=== PATIENT | female | born 1970 | race African-American/Black ===

== ENCOUNTER 2020-05-01 04:16 | Emergency (ER) | payer SELFPAY ==
--- NOTE | 2020-05-01 04:28 | PDOC ---
Attending Attestation - Resident Resident Name: Cesar Preston - ED Attending Attestation I have performed the following: I have examined & evaluated the patient, The case was reviewed & discussed with the resident, I agree w/resident's findings & plan (fat) - HPI HPI: 05/01/20 05:57 Pt comes with left foot plantar fasciitis. SHe also notes a small 1cm bump under the skin on the lateral aspect of her left lower leg. - Physicial Exam PE: 05/01/20 05:58 Agree with resident exam 05/01/20 19:49 Nomal exam. Pt has low arches and tightness and tenderness of the fascia bilaterally Normal skin Normal extremities no pitting edema; good pulses in lower extremities - Medical Decision Making 05/01/20 05:58 Pt will be given analgesics for her pain. She will be advised to wear supportive shoes with arch support; to do exercises for planatar fasciitis Discharge - Discharge Information Problems reviewed: Yes Clinical Impression/Diagnosis: Plantar fasciitis Disposition: HOME - Additional Discharge Information Prescriptions: Lidocaine 5% Patch [Lidoderm Patch -] 1 patch TP DAILY #30 patch - Follow up/Referral - Patient Discharge Instructions Patient Printed Discharge Instructions: DI for Plantar Fasciitis Additional Instructions: Take OTC tylenol or ibuprofen for pain management. Practice the exercise that we discussed to relief the pressure from the plantar fascia. Follow up with PCP for further monitoring. If condition worsens or new symptoms (shortness of breath, chest pain, leg pain) arise, go to the ED. - Post Discharge Activity
[2020-05-01 05:12] VITALS: BP 133/86; PULSE 82; TEMP 98.7; BMI 28.2
--- NOTE | 2020-05-01 05:26 | PDOC ---
History of Present Illness - General Chief Complaint: Pain, Acute Stated Complaint: L LEG PAIN Time Seen by Provider: 05/01/20 04:27 - History of Present Illness Initial Comments: 49yo female with no significant PMH presents with left lower extremity pain. She reports pain on the bottom of her left foot that she associates with beginning a walking program and uses flip flops. She also reports a slight bump on the lateral aspect of her left leg that feels like a "pressure". She denies CP, SOB, leg pain, swelling. Past History - Medical History Home Medications: Ambulatory Orders Lidocaine 5% Patch [Lidoderm Patch -] 1 patch TP DAILY #30 patch 05/01/20 - Psycho-Social/Smoking History Smoking History: Current every day smoker Have you smoked in the past 12 months: Yes Number of Cigarettes Smoked Daily: 10 Information on smoking cessation initiated: Yes - Substance Abuse Hx (Audit-C & DAST Scrn) How often the patient has a drink containing alcohol: 2-4 times / month Number of drinks the patient has on a typical day: 3 or 4 How often the patient has six or more drinks on one occasion: Less than monthly Score: In Men: 4 or > Positive; In Women: 3 or > Positive: 4 Screen Result (Pos requires Nsg. Audit-10AR): Positive In the last yr the pt used illegal drug/Rx for NonMed reason: No Score: Yes response is considered Positive: 0 Screen Result (Positive result requires Nsg. DAST-10): Negative Review of Systems - Review of Systems Able to Perform ROS?: Yes Constitutional: No: Chills, Fever HEENTM: No: Eye Pain, Blurred Vision, Double Vision Respiratory: No: Cough, Shortness of Breath, Productive cough Cardiac (ROS): No: Chest Pain, Edema, Palpitations, Chest Tightness ABD/GI: No: Constipated, Diarrhea, Nausea, Vomiting Musculoskeletal: Yes: Muscle Pain. No: Back Pain, Joint Pain, Joint Swelling, Muscle Weakness Integumentary: Yes: Other (Swelling in left lateral leg). No: Bruising Neurological: No: Headache, Numbness, Tingling, Weakness, Ataxia Psychiatric: No: Anxiety, Depression, Mood Swings *Physical Exam - Vital Signs Last Vital Signs Temp Pulse Resp BP Pulse Ox 98.7 F 82 18 133/86 98 05/01/20 05:00 05/01/20 05:00 05/01/20 05:00 05/01/20 05:00 05/01/20 05:00 - Physical Exam General Appearance: Yes: Appropriately Dressed. No: Apparent Distress, Disheveled Respiratory/Chest: positive: Lungs Clear, Normal Breath Sounds. negative: Respiratory Distress Cardiovascular: positive: Regular Rhythm, Regular Rate, S1, S2 Gastrointestinal/Abdominal: positive: Flat, Soft. negative: Tender Extremity: positive: Swelling (left lower extremity swelling that is barely visible but slightly palpable ). negative: Coldness, Cyanosis, Delayed Capillary Refill, Pedal Edema, Calf Tenderness, Erythema Neurologic: positive: Fully Oriented, Alert, Normal Mood/Affect, Normal Response, Motor Strength 5/5 Medical Decision Making - Medical Decision Making 49yo female presents with plantar pain and a slight swelling on the lateral aspect of her left leg. The plantar pain is most likely plantar fascitis with h er history of wearing uncomfortable shoes and beginning a walking exercise program. Her left leg swelling is of unknown etiology. The swelling is localized and non painful. She denies trauma or bites. Unlikely to be PE or DVT due to the localized nature and absence of surrounding edema. Pt is given a lidocaine patch and tylenol for pain control and told to followup with primary care. Discharge - Discharge Information Problems reviewed: Yes Clinical Impression/Diagnosis: Plantar fasciitis Condition: Stable Disposition: HOME - Admission No - Follow up/Referral - Patient Discharge Instructions Patient Printed Discharge Instructions: DI for Plantar Fasciitis Additional Instructions: Take OTC tylenol or ibuprofen for pain management. Practice the exercise that we discussed to relief the pressure from the plantar fascia. Follow up with PCP for further monitoring. If condition worsens or new symptoms (shortness of breath, chest pain, leg pain) arise, go to the ED. - Post Discharge Activity
[2020-05-01] MEDS ORDERED: LIDOCAINE 5% TOPICAL PATCH TP ONE (05:43)
[2020-05-01] MEDS ORDERED: LIDOCAINE PATCH REMOVAL MC ONE (18:00)
== END 2020-05-01 06:14 | disposition home or self-care (01) ==
LOC: JER 04:16
DX: M72.2 Plantar fascial fibromatosis (principal)
CPT/HCPCS: 99284-25; 99285-25

== ENCOUNTER 2021-09-10 18:47 | Emergency (ER) | payer OTHER ==
[2021-09-10 18:58] VITALS: BP 136/78; PULSE 80; TEMP 97; BMI 27.4
[2021-09-10] MEDS ORDERED: LIDOCAINE 5% TOPICAL PATCH TP ONE (20:47)
[2021-09-10] MEDS ORDERED: METHOCARBAMOL 500 MG TABLET PO ONE (20:47)
[2021-09-10] MEDS ORDERED: KETOROLAC TROMETHAMINE 60 MG/2 ML VIAL IM ONE (20:47)
[2021-09-10] MEDS ORDERED: LIDOCAINE 5% TOPICAL PATCH ONE (20:55)
[2021-09-10] MEDS ORDERED: KETOROLAC TROMETHAMINE 30 MG/1 ML VIAL ONE (20:55)
[2021-09-10] MEDS ORDERED: METHOCARBAMOL 500 MG TABLET ONE (20:55)
== END 2021-09-10 22:07 | disposition home or self-care (01) ==
LOC: JERFT 18:47 → JER 18:47 → JERFT 22:07
PROC: 3E0233Z Introduction of Anti-inflammatory into Muscle, Percutaneous Approach (ICD-10-PCS; principal; 2021-09-10)
DX: M25.511 Pain in right shoulder (principal)
CPT/HCPCS: 72040-TC; 73030-TC-RT-FY; 99284-25